=== PATIENT | male | born 1945 | race Caucasian/White ===

== ENCOUNTER → 2020-09-18 13:49 | Outpatient (BNVA) | payer MEDICARE, SELFPAY | PROVIDERS: Family Provider Family Medicine; Visit Provider Nurse Practitioner | DX: R29.818 Other symptoms and signs involving the nervous system (principal); G31.84 Mild cognitive impairment of uncertain or unknown etiology; Z87.891 Personal history of nicotine dependence | CPT/HCPCS: 99204 ==